=== PATIENT | male | born 1955 | race Caucasian/White ===

== ENCOUNTER → 2019-03-18 | Outpatient (CLI) | payer OTHER ==
[~2019-03-18] MED LIST: BENADRYL25 MG PO; CALCIUM + VIT1 EACH PO; PREDNISONE 20 M20 MG PO; VITAMINC500 PO; [UNRECOGNIZED DRUG - OTHER] TP
== END ==
LOC: M.ULTRA 03-11 07:58
DX: M25.561 Pain in right knee (principal); R22.41 Localized swelling, mass and lump, right lower limb

== ENCOUNTER → 2019-11-30 | Outpatient (CLI) | payer OTHER | LOC: M.RAD 11:48 | DX: R05 Cough (principal); R53.83 Other fatigue; R61 Generalized hyperhidrosis; R06.89 Other abnormalities of breathing ==